=== PATIENT | female | born 1960 | race Caucasian/White ===

== ENCOUNTER 2016-10-08 09:59 | Day surgery (SDC) | payer OTHER ==
[2016-10-08 10:39] VITALS: BMI 23.1
[2016-10-08] MEDS ORDERED: PROPOFOL 20 ML ONE ×2 (11:37)
[2016-10-08] MEDS ORDERED: LIDOCAINE HCL/PF 2% SDV 5ML VIAL ONE (11:37)
[2016-10-08 12:12] VITALS: TEMP 98.4
[2016-10-08 12:51] VITALS: BP 113/61; PULSE 69
--- NOTE | 2016-10-09 14:27 | PATH ---
Surgical Pathology Report Patient Name: OKSANA BARRAGAN [facility]. Rec. #: [id number] /Age/Gender: 1960 (Age: 56) / F Account: [id number] Location: U-ENDOSCOPY Taken: 10/08/2016 Received: 10/08/2016 Reported: 10/09/2016 Physicians: Shoaib Moon M.D. Specimen(s) Received A: SPLENIC FLEXURE BIOPSY B: BX DISTAL SIGMOID POLYP Clinical History History of colonic polyp Colon polyps Final Diagnosis A. COLON, SPLENIC FLEXURE, POLYP, POLYPECTOMY: CONSISTENT WITH INFLAMMATORY/POSTINFLAMMATORY TYPE POLYP. B. COLON, DISTAL SIGMOID, POLYP, BIOPSY: HYPERPLASTIC POLYP. Electronically Signed Terell Alexander M.D. Gross Description A. Received in formalin, labeled "splenic flexure polyp" is a toussaint, irregular portion of soft tissue measuring 0.1 cm in greatest dimension. The specimen is submitted in toto in one cassette. B. Received in formalin, labeled "biopsy distal sigmoid polyp" is a toussaint, irregular portion of soft tissue measuring 0.3 cm in greatest dimension. The specimen is submitted in toto in one cassette. /10/08/2016 saudi10/08/2016
== END 2016-10-08 13:15 | disposition home or self-care (01) ==
LOC: JASU-ENDO 09:59
PROVIDERS: ATTEND Internal Medicine Gastroenterology
PROC: 0DBN8ZX Excision of Sigmoid Colon, Via Natural or Artificial Opening Endoscopic, Diagnostic (ICD-10-PCS; 2016-10-08)
PROC: 0DBK8ZX Excision of Ascending Colon, Via Natural or Artificial Opening Endoscopic, Diagnostic (ICD-10-PCS; principal; 2016-10-08 10:30)
DX: Z86.010 Personal history of colon polyps (principal); K63.5 Polyp of colon
CPT/HCPCS: 84703; 88305-TC